=== PATIENT | female | born 1980 | race Caucasian/White ===

== ENCOUNTER 2017-04-16 20:25 | Emergency (ER) | payer BC, OTHER ==
[2017-04-16 20:47] VITALS: BP 169/87
[2017-04-16] MEDS ORDERED: NORCO 5/325 MG PO ONE ×2 (20:58→21:49)
--- NOTE | 2017-04-16 21:04 | ERPHSYRPT ---
- History of Present Illness Time Seen by Provider: 04/16/17 20:47 Source: patient Exam Limitations: no limitations Patient Subjective Stated Complaint: pt states she fell while in exercise class. states she caught herself wiht her lt arm and hurt her wrist and forearm Triage Nursing Assessment: pt alert and oriented, asnwers questions approp. respirations nonlabored wiht lungs cta. pt ambulatory with steady gait noted. pt gaurding lt arm, moves at shoulder and elbow without difficulty. lt hand cool , cap refill, and sensation wnl. Physician History: AT [age] TONIGHT DURING EXERCISE CLASS IN [place], [place], PT FELL CATCHING HERSELF WITH HER LEFT UPPER EXTREMITY WITH RESULTANT PAIN IN THE LEFT ELBOW TO THE LEFT HAND; DENIES PRIOR INJURY TO THE LEFT ELBOW, FOREARM AND HAND; DENIES TINGLING/ NUMBNESS OF THE LEFT HAND DIGITS. Allergies/Adverse Reactions: No Known Drug Allergies Allergy (Verified 04/16/17 20:52) Home Medications: No Reportable Medications [No Reported Medications] 04/16/17 [History] Hx Tetanus, Diphtheria Vaccination/Date Given: No Hx Influenza Vaccination/Date Given: No Hx Pneumococcal Vaccination/Date Given: No Immunizations Up to Date: No - Review of Systems Musculoskeletal: Other (LEFT UPPER EXTREMITY PAIN TONIGHT) - Past Medical History Pertinent Past Medical History: No - Past Surgical History Past Surgical History: Yes Female Surgical History: Section - Social History Smoking Status: Never smoker Exposure to second hand smoke: No Drug Use: none Patient Lives Alone: No - Female History Hx Last Menstrual Period: mirena Hx Now: No - Nursing Vital Signs Nursing Vital Signs: Initial Vital Signs Temperature 98.0 F 04/16/17 20:39 Blood Pressure 169/87 04/16/17 20:39 Pain Scale Pain Intensity 6 - Physical Exam General Appearance: alert Shoulder Exam: No non-tender Elbow/Forearm Exam: soft tissue tenderness (MILD TENDERNESS OF THE LEFT ELBOW AND EXTENSOR ASPECT OF THE PROXIMAL LEFT FOREARM; LEFT ELBOW HAS FULL FLEXION BUT EXTENSION LIMITED TO 120 DEGREES.) Wrist Exam: non-tender, normal ROM Hand Exam: soft tissue tenderness (MILD TENDERNESS OF THE BASE OF THE PALM OF THE LEFT HAND; ALL DIGITS OF THE LEFT HAND HAVE GOOD CAPILLARY REFILL, ROM AND SENSATION.) Neuro/Tendon Exam: normal sensation Mental Status Exam: alert, cooperative Skin Exam: warm, dry SpO2 Interpretation: normal Oxygen Delivery: Room Air - Course Nursing assessment & vital signs reviewed: Yes - Radiology Exams Left Elbow X-ray Interpretation: Interpreted by me (LEFT RADIAL HEAD FRACTURE) Left Forearm X-ray Interpretation: Interpreted by me, No Fracture Left Hand X-ray Interpretation: Interpreted by me, No Fracture Ordered Tests: Active Orders 24 hr Category Date Time Status Sling Application STAT Care 04/16/17 20:58 Active Splint STAT Care 04/16/17 21:49 Active ELBOW (2 VIEW) Stat Exams 04/16/17 20:58 Taken FOREARM Stat Exams 04/16/17 20:58 Taken HAND (MINIMUM 3 VIEWS) Stat Exams 04/16/17 20:58 Taken Medication Summary Discontinued Medications Generic Name Dose Route Start Last Admin Trade Name Maria E PRN Reason Stop Dose Admin Hydrocodone Bitart/Acetaminophen 2 tab 04/16/17 20:58 04/16/17 21:19 Walker 5/325 Mg PO 04/16/17 20:59 Not Given STAT ONE Hydrocodone Bitart/Acetaminophen Confirm 04/16/17 21:07 Walker 5/325 Mg Administered 04/16/17 21:08 Dose 2 tab .ROUTE .STK-MED ONE Hydrocodone Bitart/Acetaminophen Confirm 04/16/17 21:15 Walker 5/325 Mg Administered 04/16/17 21:16 Dose 2 tab .ROUTE .STK-MED ONE Hydrocodone Bitart/Acetaminophen 2 tab 04/16/17 21:49 04/16/17 22:17 Walker 5/325 Mg PO 04/16/17 21:50 2 tab SENT HOME W/ PATIENT ONE Administration - Progress Progress Note: 04/16/17 22:35 POSTERIOR SPLINT ON LEFT ARM HAS GOOD ALIGNMENT; LEFT HAND HAS GOOD NEUROVASCULAR STATUS POST APPLICATION. Discussed with Dr.: Other (SPOKE WITH DR NEIL(ORTHOPEDIC SURGEON)([id number]) WHO WILL SEE PT IN [facility].) - Departure Time of Disposition: 22:36 Departure Disposition: Home Clinical Impression: FRACTURE OF LEFT RADIAL HEAD, LEFT HAND SPRAIN Condition: Stable Critical Care Time: No Instructions: Elbow Fracture (DC) Additional Instructions: FOLLOW UP WITH [facility] TO SEE DR NEIL(ORTHOPEDIC SURGEON) AT 9:10 AM. KEEP LEFT ARM IN SPLINT UNTIL ORTHOPEDIC DOCTOR IS SEEN. WEAR LEFT ARM SLING FOR COMFORT.
[2017-04-16] MEDS ORDERED: NORCO 5/325 MG ONE ×2 (21:07→21:15)
--- NOTE | 2017-04-17 09:02 | XRAY ---
Indication: Pain following fall. Comparison: None 2 views of the left forearm obtained. No bony, articular, or soft tissue abnormalities.
--- NOTE | 2017-04-17 09:05 | XRAY ---
Indication: Pain following fall. Comparison: None 2 views of the left elbow demonstrates tiny nondisplaced cortical fracture involving the radial head without intra-articular extension. Minimally displaced anterior/posterior fat pads suggesting effusion. No other bony, articular, or soft tissue abnormalities. Comment: Above findings not reported on preliminary interpretation by the ER clinician. I gave telephone report to Dr. Thorne at 0900 hrs. on April 17, 2017.
--- NOTE | 2017-04-17 09:05 | XRAY ---
Indication: Pain following fall. Comparison: None 3 views of the left hand obtained. No bony, articular, or soft tissue abnormalities.
== END 2017-04-16 22:45 | disposition home or self-care (01) ==
LOC: ED 20:25
PROC: 2W39X1Z Immobilization of Left Upper Extremity using Splint (ICD-10-PCS; principal; 2017-04-16)
DX: S52.122A Displaced fracture of head of left radius, initial encounter for closed fracture (principal); S63.92XA Sprain of unspecified part of left wrist and hand, initial encounter; W18.39XA Other fall on same level, initial encounter; Y93.A9 Activity, other involving cardiorespiratory exercise
CPT/HCPCS: 29105; 73070; 73090; 73130; 99283; A9270-GY